=== PATIENT | male | born 1975 | race Two or more races ===

== ENCOUNTER 2018-06-02 09:15 | Day surgery (SDC) | payer BC ==
[2018-05-12 19:25] VITALS: BMI 27.6
[2018-06-02 09:45] VITALS: TEMP 98.1
[2018-06-02] MEDS ORDERED: LIDOCAINE HCL/PF 2% SDV 5ML VIAL ONE (10:48)
[2018-06-02] MEDS ORDERED: PROPOFOL 20 ML ONE (10:48)
[2018-06-02 11:40] VITALS: BP 132/72; PULSE 84
--- NOTE | 2018-06-04 16:33 | PATH ---
Surgical Pathology Report Patient Name: JOSHUA NIXON [facility]. Rec. #: [id number] /Age/Gender: 1975 (Age: 43) / M Account: [id number] Location: [facility] Taken: 06/02/2018 Received: 06/02/2018 Reported: 06/04/2018 Physicians: Yennifer Bender M.D. Specimen(s) Received A: SECOND PORTION B: BX ANTRUM C: BX GE JUNCTION Clinical History Dyspepsia Postoperative diagnosis: Gastritis, duodenitis Final Diagnosis A. DUODENUM, SECOND PORTION, BIOPSY: DUODENAL MUCOSA WITH MILD ACUTE AND CHRONIC DUODENITIS. B. STOMACH, ANTRUM, BIOPSY: GASTRIC ANTRAL MUCOSA WITH SEVERE CHRONIC ACTIVE GASTRITIS. IMMUNOHISTOCHEMICAL STAIN FOR H. PYLORI IS POSITIVE (MANY). C. GE JUNCTION, BIOPSY: GASTRIC CARDIAC TYPE MUCOSA WITH SEVERE CHRONIC ACTIVE GASTRITIS. HELICOBACTER ORGANISMS IDENTIFIED (MANY). NO SQUAMOUS MUCOSA, INTESTINAL METAPLASIA, OR DYSPLASIA IDENTIFIED. Electronically Signed Yennifer Parmar M.D. Gross Description A. Received in formalin, labeled "biopsy of second portion of duodenum" is a ruiz, irregular portion of soft tissue measuring 0.5 cm. in greatest dimension. The specimen is submitted in toto in one cassette. B. Received in formalin, labeled "biopsy at antrum" is a ruiz, irregular portion of soft tissue measuring 0.3 cm. in greatest dimension. The specimen is submitted in toto in one cassette. C. Received in formalin, labeled "biopsy at GE junction" is a ruiz, irregular portion of soft tissue measuring 0.4 cm. in greatest dimension. The specimen is submitted in toto in one cassette. 06/03/2018 saudi06/03/2018
== END 2018-06-02 11:45 | disposition home or self-care (01) ==
LOC: FASU-ENDO 09:15
PROVIDERS: ATTEND Internal Medicine Gastroenterology
PROC: 0DB78ZX Excision of Stomach, Pylorus, Via Natural or Artificial Opening Endoscopic, Diagnostic (ICD-10-PCS; 2018-06-02)
PROC: 0DB48ZX Excision of Esophagogastric Junction, Via Natural or Artificial Opening Endoscopic, Diagnostic (ICD-10-PCS; 2018-06-02)
PROC: 0DB98ZX Excision of Duodenum, Via Natural or Artificial Opening Endoscopic, Diagnostic (ICD-10-PCS; principal; 2018-06-02 10:30)
DX: K29.80 Duodenitis without bleeding (principal); K29.50 Unspecified chronic gastritis without bleeding; B96.81 Helicobacter pylori [H. pylori] as the cause of diseases classified elsewhere; R10.13 Epigastric pain; R10.9 Unspecified abdominal pain
CPT/HCPCS: 88305-TC; 88342-TC

== ENCOUNTER 2023-06-18 10:09 | Emergency (ER) | payer OTHER ==
[2023-06-18 10:19] VITALS: BP 150/103; PULSE 85; RESP 18; TEMP 98.6; BMI 28.7
[2023-06-18] MEDS ORDERED: LIDOCAINE 4% PATCH TP ONE (11:34)
[2023-06-18] MEDS ORDERED: ACETAMINOPHEN 500 MG TABLET (FP) ONE (11:35)
[2023-06-18] MEDS ORDERED: IBUPROFEN 400 MG TABLET (FP) PO ONE (11:35)
[2023-06-18] MEDS: ACETAMINOPHEN 500 MG TABLET (FP) PO ONE (11:40)
[2023-06-18] MEDS: IBUPROFEN 400 MG TABLET (FP) PO ONE (11:40)
[2023-06-18] MEDS: LIDOCAINE 5% TOPICAL PATCH TP ONE (11:40)
[2023-06-18] MEDS ORDERED: LIDOCAINE PATCH REMOVAL MC SCH (22:00)
== END 2023-06-18 11:47 | disposition home or self-care (01) ==
LOC: JERFT 10:09
DX: M54.2 Cervicalgia (principal); M54.6 Pain in thoracic spine; V49.40XA Driver injured in collision with unspecified motor vehicles in traffic accident, initial encounter; Y92.410 Unspecified street and highway as the place of occurrence of the external cause
CPT/HCPCS: 99283-25